=== PATIENT | female | born 1970 | race Hispanic/Latino ===

== ENCOUNTER 2016-11-07 13:20 | Outpatient (CLI) | payer OTHER ==
--- NOTE | 2016-11-09 10:41 | Mammography Report ---
BILATERAL DIGITAL SCREENING MAMMOGRAM WITH CAD. Comparison is made to a previous study on July 08, 2014. FINDINGS: Bilateral intact breast implants are noted. The overlying parenchyma is heterogeneously dense. In the mid left breast on the MLO projection, there is a focal area of subtle asymmetry. No suspicious calcifications or other associated findings are seen. IMPRESSION: Left parenchymal asymmetry. BI-RADS CATEGORY: 0 = Needs additional imaging evaluation ACR BI-RADS MAMMOGRAPHIC CODES: 0 = Needs additional imaging evaluation; 1 = Negative; 2 = Benign; 3 = Probably benign; 4 = Suspicious; 5 = Malignant; 6 = Known biopsy-proven malignancy COMMENT: 1. Dense breast tissue, i.e., adenosis, fibrocystic changes, etc., may obscure an underlying neoplasm. 2. Approximately 10% of cancers are not detected with mammography. 3. A negative mammography report should not delay biopsy if a clinically suspicious mass is present. RECOMMENDATION: Spot compression image, 90 degree view, and ultrasound if needed. COMMENT: Patient follow-up letters are generated by [employer].
== END 2016-11-07 13:21 | disposition home or self-care (01) ==
LOC: SPVWC 13:20
PROVIDERS: ATTEND Obstetrics & Gynecology
DX: Z12.31 Encounter for screening mammogram for malignant neoplasm of breast (principal)
CPT/HCPCS: 77067; G0202